=== PATIENT | male | born 1960 | race Caucasian/White ===

== ENCOUNTER → 2023-05-01 08:11 | Outpatient (REF) | payer OTHER, SELFPAY | LOC: HWRAD 08:11 | PROVIDERS: ATTENDING PHYSICIAN Family Medicine | DX: R10.9 Unspecified abdominal pain (principal) | CPT/HCPCS: 76700 ==

== ENCOUNTER → 2023-06-11 08:48 | Day surgery (SDC) | payer OTHER, SELFPAY ==
[2023-05-25 13:49] VITALS: BMI 30.1
[2023-05-25 15:21] LABS: ALT (SGPT) 27 U/L (0-50); AST (SGOT) 31 U/L (17-59); Albumin 4.6 g/dl (3.5-5.0); Alkaline Phosphatase 47 U/L (38-126); Direct Bilirubin 0.1 mg/dl (0.0-0.4); Total Bilirubin 0.4 mg/dl (0.2-1.3); Total Protein 7.7 g/dl (6.3-8.2)
[2023-06-11] VITALS (7 sets, daily range): BP systolic 147–177; BP diastolic 72–96; BMI 30.1
[2023-06-11] MEDS: TYLENOL 1000 MG PO (11:04)
[2023-06-11] MEDS: NORMOSOL-R 1000 IV (11:05)
[2023-06-11] MEDS: IC GREEN 2.5 MG IV (11:09)
--- NOTE | 2023-06-11 13:32 | OR.RPT ---
Operative Report
Operative Report
Primary Surgeon: Michael
Assisting: Eder BEAUCHAMP
Pre-op Diagnosis: Chronic cholecystitis
Post-op Diagnosis: Same
Procedure Performed: Robot assisted laparoscopic cholecystectomy
Anesthesia Type: GETA
Specimen / Cultures: Gallbladder
Estimated Blood Loss: 5cc
Complications: None immediate
Operative Findings: Elongated intrahepatic gallbladder with fatty infiltration of the wall
Date of Surgery:� 06/11/23
Indications: This 63M developed biliary colic with normal liver enzymes and without ductal dilation. Laparoscopic cholecystectomy was elected.
Description of procedure: The patient was placed on the operating table in the supine position. General anesthesia was induced. A time-out was completed verifying correct patient, procedure, site, positioning, and special equipment prior to
beginning this procedure. An orogastric tube was placed. The abdomen was prepped and draped in the usual sterile fashion. A stab incision was made in left upper quadrant and the Veress needle was inserted. Proper position was confirmed by aspiration
and saline meniscus test. The abdomen was insufflated with carbon dioxide to a pressure of 12mmHg. The patient tolerated insufflation well.
A 8mm trocar was then inserted above the umbilicus. The laparoscope was inserted and the abdomen inspected. No injuries from initial trocar placement or Veress needle insertion were noted. Additional 8mm trocars were then inserted in the following
locations: two in the right lower quadrant and to the left of the umbilicus and just above. The abdomen was inspected and no abnormalities were found. The table was placed in the reverse Trendelenburg position with the right side up. The dome of the
gallbladder was grasped with an atraumatic grasper and retracted over the dome of the liver. The infundibulum was then grasped with an atraumatic grasper and retracted toward the right lower quadrant. This maneuver exposed Calot�s triangle. The
peritoneum overlying the gallbladder infundibulum was then incised and the cystic duct and cystic artery identified and circumferentially dissected so that a clear view of the liver was achieved through a window between the cystic duct an cystic
artery. At this time, the only two structures going into the gallbladder were the cystic artery and cystic duct.
The cystic duct was then doubly clipped and divided. The cystic artery was controlled with bipolar and divided. The gallbladder was then dissected from its peritoneal attachments by electrocautery. Hemostasis was assured and the gallbladder was
removed using an endoscopic retrieval bag placed through the umbilical port. The gallbladder was passed off the table as a specimen. The gallbladder fossa was closely inspected and hemostasis was again assured. There was no evidence of bleeding from
the gallbladder fossa or cystic artery or leakage of the bile from the cystic duct stump. The umbilical trocar site was closed at the fascial level with 2-0 PDS. Secondary trocars were removed under direct vision and noted to be hemostatic. The
abdomen was allowed to collapse. The skin was closed with subcuticular sutures of 4-0 monocryl and topical skin adhesive. The orogastric tube was removed.
The patient tolerated the procedure well and was taken to the postanesthesia care unit in stable condition.
== END | disposition home or self-care (01) ==
LOC: SDS 08:48
PROVIDERS: ATTENDING PHYSICIAN Surgery; FAMILY PHYSICIAN Family Medicine
DX: K80.44 Calculus of bile duct with chronic cholecystitis without obstruction (principal); Q44.1 Other congenital malformations of gallbladder; D13.5 Benign neoplasm of extrahepatic bile ducts; K82.8 Other specified diseases of gallbladder
CPT/HCPCS: 47562; 88304; 36415; 80076; 93005

== ENCOUNTER 2024-11-15 09:14 | Emergency (ER) | payer OTHER, SELFPAY ==
[2024-11-15 09:16] VITALS: BP 172/87
--- NOTE | 2024-11-15 10:05 | ED.GENMED ---
History of Present Illness
General
Chief Complaint: Abdominal Pain
Time Seen by Provider: 11/15/24 09:57
History of Present Illness
History of Present Illness:
64-year-old male presents to the emergency department for evaluation of lower abdominal discomfort for the past 3 days with mild discomfort during bowel movements and urination. No fevers or chills. Prior abdominal surgery of cholecystectomy. No
nausea or vomiting.
Review of Systems
Review of Systems
Allergies reviewed?: Yes
All Other Systems: ROS reviewed and negative except as documented in HPI and ROS
Phy Exam
Physical Exam
Physical Exam:
GEN: Well appearing, NAD, WDWN
HEENT: Oral mucosa moist, no scleral icterus
Cardiac: Regular rate
Lung: No respiratory distress, no tachypnea
Abdomen: Soft, mild suprapubic and right lower quadrant tenderness, no rigidity or peritoneal signs
MSK: No gross deformity or injuries
Skin: Good color, no pallor or jaundice, no rashes
Neuro: AO x3, moves all extremities freely
Psych: Calm, cooperative
Course
Orders/Labs/Results
Orders:
Orders
11/15/24 10:04
CT Abd/Pel (IV only)-[facility] only Urgent
Comment:
Reason For Exam: suprapubic pain
11/15/24 10:07
Complete Blood Count/With Diff Urgent
Comprehensive Metabolic Panel Urgent
11/15/24 13:08
Ampicillin/Sulbactam 3 G [Unasyn] 3 gm 0.9% Sodium Chloride 100 ml [Nss] 100 ml IV NOW
Abnormal Lab Results
11/15/24
10:07
WBC 13.9 H 10^3/uL
(4.8-10.8)
RBC 4.56 L 10^6/uL
(4.70-6.10)
Hct 38.2 L %
(39.0-52.0)
Abs Immat Gran (auto) 0.1 H 10^3/uL
(0-0.05)
Absolute Neuts (auto) 11.0 H 10^3/uL
(1.4-6.5)
Absolute Monos (auto) 1.3 H 10^3/uL
(0.1-0.6)
Neutrophils % 78.8 H %
(42.2-75.2)
Lymphocytes % 10.7 L %
(20.5-51.1)
Glucose 102 H mg/dl
(70-99)
11/15/24 10:07
11/15/24 10:07
Vital Signs
Initial and Last Documented VS:
Initial Vital Signs
Temp Pulse Resp BP Pulse Ox
98.6 F 90 18 172/87 97
11/15/24 09:16 11/15/24 09:16 11/15/24 09:16 11/15/24 09:16 11/15/24 09:16
Last Documented Vital Signs
Temp Pulse Resp BP Pulse Ox
98.6 F 90 18 172/87 97
11/15/24 09:16 11/15/24 09:16 11/15/24 09:16 11/15/24 09:16 11/15/24 10:06
MDM/Problems Addressed
MDM/Problems Addressed:
Imaging reveals acute sigmoid diverticulitis. He has a nonperitoneal exam and is afebrile and clinically well-appearing. IV Unasyn given in the ED and will transition to oral Augmentin for 10-day course. ED return parameters discussed as well as
importance of clear liquid diet
*Pulse Oximetry
SaO2: 97
Oxygen Mode of Delivery: Room air
Patient hypoxic: no
*Critical Care Note
Total Time (30-74mins, 75-104mins- exclusive of procedures): Not Applicable
ED Attending Note
-
Portions of this chart may have been created with voice recognition software.� Occasional wrong word or��sound alike� substitutions may have occurred due to the inherent limitations of voice recognition software.
Discharge Plan
Departure
Patient Disposition: Home (Routine Discharge)
Date of Disposition: 11/15/24
Time of Disposition: 13:00
Patient with high blood pressure during this ER visit?: No
Discharge Problem:
Diverticulitis
Instructions: Clear Liquid Diet, Diverticulitis (DC)
Prescriptions:
New
amoxicillin-pot clavulanate 875-125 mg tablet
1 tab PO BID Qty: 20 0RF
No Action
cetirizine [Zyrtec] 10 mg Tablet
10 mg PO DAILY PRN (Reason: allergies)
valsartan 160 mg Tablet
160 mg PO DAILY
Nexletol 180 mg Tablet
180 mg PO DAILY
oxycodone 5 mg tablet
5 - 10 mg PO Q4HPRN PRN (Reason: moderate to severe pain) Qty: 20 0RF
Referrals:
Everton Ramsey MD [Family Provider, Family Practice]
Ganesh Baron MD [Active, Gastroenterology]
Interventions
Interventions:
*Risk Screen - Suicide Last Done: 11/15/24 09:16
*General Assessment Last Done: 11/15/24 09:16
*Neglect/Abuse Screening Last Done: 11/15/24 09:16
Discharge Date and Time
Print Language: SETSWA[place]
[2024-11-15 10:12] VITALS: BMI 33.5
[2024-11-15 10:18] LABS: Hematocrit 38.2 % (39.0-52.0); Hemoglobin 13.1 g/dL (13.0-18.0); Mean Corp Hgb Conc. 34.3 g/dL (33.0-37.0); Mean Corpuscular Volume 83.8 fL (80.0-94.0); Nucleated Red Blood Cells % 0 % (-); Platelet Count 289 10^3/uL (130-400); Red Cell Dist. Width 12.5 % (11.5-14.5)
[2024-11-15 10:55] LABS: ALT (SGPT) 40 U/L (0-50); AST (SGOT) 24 U/L (17-59); Albumin 4.5 g/dl (3.5-5.0); Alkaline Phosphatase 45 U/L (38-126); Blood Urea Nitrogen 17 mg/dl (9-20); Calcium 9.3 mg/dl (8.4-10.2); Carbon Dioxide 29 mmol/L (22-30); Chloride 102 mmol/L (98-107); Estimated Creatinine Clearance 87 ml/min; Glucose 102 mg/dl (70-99); Potassium 4.3 mmol/L (3.5-5.1); Sodium 140 mmol/L (135-145); Total Protein 7.5 g/dl (6.3-8.2); eGFR > 60.00
[2024-11-15] MEDS: UNASYN IV (13:18)
== END 2024-11-15 14:57 | disposition home or self-care (01) ==
LOC: EMR 09:14
PROVIDERS: Physician Assistant; EMERGENCY PHYSICIAN Emergency Medicine; FAMILY PHYSICIAN Family Medicine
DX: K57.32 Diverticulitis of large intestine without perforation or abscess without bleeding (principal); Z90.49 Acquired absence of other specified parts of digestive tract
CPT/HCPCS: 99284; 96365; 74177; 80053; 85025; Q9967